=== PATIENT | male | born 1990 | race African-American/Black ===

== ENCOUNTER 2016-11-29 01:30 | Emergency (ER) | payer MEDICAID ==
[~2016-11-29] VITALS: Ht 182.9 cm; Wt 79.2 kg
[2016-11-29 01:32] VITALS: BP 137/79
[2016-11-29 02:40] LABS: ASPARTATE AMINO TRANSFERASE 16 U/L (15-37); BLOOD UREA NITROGEN 14 mg/dL (7-18)
== END 2016-11-29 04:37 | disposition home or self-care (01) ==
LOC: ED 02:41
DX: S39.011A Strain of muscle, fascia and tendon of abdomen, initial encounter (principal); R31.29 Other microscopic hematuria; F17.200 Nicotine dependence, unspecified, uncomplicated; X58.XXXA Exposure to other specified factors, initial encounter; Y93.89 Activity, other specified; Y92.89 Other specified places as the place of occurrence of the external cause; Y99.8 Other external cause status
CPT/HCPCS: 36415; 76770; 80053; 81001; 85025

== ENCOUNTER 2017-04-08 09:22 | Emergency (ER) | payer MEDICAID ==
[~2017-04-08] VITALS: Ht 185.4 cm; Wt 80.7 kg
[2017-04-08 09:27] VITALS: BP 132/80
[2017-04-08] MEDS ORDERED: IBUPROFEN 200 MG TABLET ONE (09:46)
[2017-04-08] MEDS ORDERED: DIPH,PERTUSS(ACELL),TET VAC/PF 0.5 ML IM-VACC ONE ×2 (09:46→10:00)
[2017-04-08] MEDS ORDERED: IBUPROFEN 200 MG TABLET PO ONE (10:00)
[2017-04-08] MEDS ORDERED: BACITRACIN ZINC OINT 500U/GM, 0.9 GM ONE (10:19)
== END 2017-04-08 10:50 | disposition home or self-care (01) ==
LOC: ED 10:47
DX: S60.222A Contusion of left hand, initial encounter (principal); S60.221A Contusion of right hand, initial encounter; Y04.2XXA Assault by strike against or bumped into by another person, initial encounter; Y93.89 Activity, other specified; Y92.488 Other paved roadways as the place of occurrence of the external cause; Y99.8 Other external cause status
CPT/HCPCS: 90471; 90715; 99284

== ENCOUNTER 2017-10-04 08:49 | Emergency (ER) | payer MEDICAID ==
[~2017-10-04] VITALS: Ht 185.4 cm; Wt 79.4 kg
[2017-10-04 08:50] VITALS: BP 129/80
== END 2017-10-04 09:35 | disposition home or self-care (01) ==
LOC: ED 09:06
DX: J02.9 Acute pharyngitis, unspecified (principal)
CPT/HCPCS: 99283

== ENCOUNTER 2018-01-27 03:28 | Emergency (ER) | payer MEDICAID ==
[~2018-01-27] VITALS: Ht 182.9 cm; Wt 79.2 kg
[2018-01-27 03:34] VITALS: BP 147/91
[2018-01-27 04:02] LABS: MICROSCOPIC INDICATED
[2018-01-27] MEDS ORDERED: AZITHROMYCIN 250 MG TABLET ONE (04:49)
[2018-01-27] MEDS ORDERED: CEFTRIAXONE 250 MG ONE (04:49)
[2018-01-27] MEDS ORDERED: AZITHROMYCIN 500 MG TABLET PO ONE (05:00)
[2018-01-27] MEDS ORDERED: CEFTRIAXONE 250 MG IM ONE (05:00)
== END 2018-01-27 05:00 | disposition home or self-care (01) ==
LOC: ED 04:55
DX: N30.01 Acute cystitis with hematuria (principal); Z87.891 Personal history of nicotine dependence; Z88.0 Allergy status to penicillin
CPT/HCPCS: 81001; 87491; 87591; 96372; 99284; J0696